=== PATIENT | male | born 1985 | race Caucasian/White ===

== ENCOUNTER → 2018-11-23 | Outpatient (CLI) | payer BC | LOC: ULTRA 07:44 | DX: R10.11 Right upper quadrant pain (principal); Z87.442 Personal history of urinary calculi ==

== ENCOUNTER → 2018-11-28 | Outpatient (CLI) | payer BC | LOC: CAT 08:32 | DX: N20.0 Calculus of kidney (principal); R19.5 Other fecal abnormalities ==